=== PATIENT | male | born 1960 | race Caucasian/White ===

== ENCOUNTER 2020-06-15 14:05 | Emergency (ER) | payer OTHER ==
[~2020-06-15] VITALS: Ht 177.8 cm; Wt 72.5 kg
[2020-06-15] MEDS ORDERED: LIDOCAINE 2% 20 ML VIAL. IJ ONE (14:45)
[2020-06-15] MEDS ORDERED: DIPH,PERTUSS(ACELL),TET VAC/PF 0.5 ML SYRINGE. VAX IM ONE (15:00)
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
[2020-06-15] MEDS ORDERED: BACITRACIN ZINC TOPICAL OINT PACKET. TP ONE ×2 (16:10→16:15)
[2020-06-15] MEDS ORDERED: CEPH500C PO (16:11)
[2020-06-15 16:20] VITALS: BP 142/68
== END 2020-06-15 16:25 | disposition home or self-care (01) ==
LOC: ER 14:05
DX: S61.012A Laceration without foreign body of left thumb without damage to nail, initial encounter (principal); I25.2 Old myocardial infarction; Z86.79 Personal history of other diseases of the circulatory system; Z88.5 Allergy status to narcotic agent; W26.0XXA Contact with knife, initial encounter; Y93.89 Activity, other specified; Y92.89 Other specified places as the place of occurrence of the external cause; Y99.8 Other external cause status
CPT/HCPCS: 12001; 73130; 90471; 90715; 99283; J2001